=== PATIENT | male | born 1935 | race Caucasian/White ===

== ENCOUNTER 2020-02-04 16:00 | Inpatient (IN) | payer OTHER ==
[~2020-02-04] VITALS: Ht 213.4 cm; Wt 98.4 kg
[2020-02-04 16:00] VITALS: BP 144/76
[2020-02-04] MEDS ORDERED: TOPUD PO (16:30)
[2020-02-04] MEDS ORDERED: TEMA15CA PO (16:31)
[2020-02-04] MEDS ORDERED: HYDR1LIQ5 MT (16:32)
[2020-02-04 17:06] VITALS: BP 144/76
[2020-02-04] MEDS ORDERED: ONDA4SOL MT (17:13)
[2020-02-04] MEDS ORDERED: METO-539 MT (18:46)
[2020-02-04] MEDS ORDERED: ONDANSETRON HCL 4MG/2ML INJ IV PRN (19:15)
[2020-02-04] MEDS: MORPHINE SULFATE 2 MG/ML CPJ (NOT FOR IM USE) IV PRN (19:57)
[2020-02-04 20:00] VITALS: BP 138/76
[2020-02-04 22:00] LABS: HEMOGLOBIN 10.9 g/dL (14.0-18.0); MEAN CORPUSCULAR HEMOGLOBIN 26.6 pg (28.0-32.0); MEAN CORPUSCULAR VOLUME 82.7 fL (80.0-94.0); PLATELET 413 x1000/uL (130-400); RED BLOOD CELL COUNT 4.11 mill/uL (4.7-6.1); RED CELL DISTRIBUTION WIDTH 19.2 % (11.6-14.6)
[2020-02-04 22:05] LABS: CHLORIDE 106 mEq/L (98-107)
[2020-02-04 22:08] LABS: INR 1.5; PROTHROMBIN TIME 15.4 sec (9.6-11.0)
[2020-02-04 22:13] LABS: LDL CHOLESTEROL 50 mg/dL (5-100)
[2020-02-04 22:15] LABS: HDL CHOLESTEROL 27 mg/dL (40-59)
[2020-02-04] MEDS: METOPROLOL TARTRATE 50MG TABLET PO SCH (23:22)
[2020-02-05] VITALS: BP 165/89
[2020-02-05] MEDS: MORPHINE SULFATE 2 MG/ML CPJ (NOT FOR IM USE) IV PRN ×3 (00:53→12:54)
[2020-02-05 04:00] VITALS: BP 200/82
[2020-02-05] MEDS: HYDRALAZINE 20MG/ML VIAL IV PRN (06:37)
[2020-02-05 12:00] VITALS: BP 135/69
[2020-02-05] MEDS ORDERED: LABETALOL 5MG/ML SYR 20 MG/4 ML SYRINGE IV NR (12:30)
[2020-02-05] MEDS: METOPROLOL TARTRATE 50MG TABLET PO SCH ×2 (12:55→22:36)
[2020-02-05] MEDS ORDERED: ACETAMINOPHEN 325MG TABLET PO PRN (13:45)
[2020-02-05 16:00] VITALS: BP 139/72
[2020-02-05 16:39] LABS: BASOPHILS % 1.2 % (0.0-2.0); EOSINOPHILS % 3.8 % (0.0-5.0); HEMATOCRIT. 35.1 % (42.0-52.0); HEMOGLOBIN. 11.3 g/dL (14.0-18.0); LYMPHOCYTES % 17.7 % (20.0-50.0); MEAN CORPUSCULAR HEMOGLOBIN 26.7 pg (28.0-32.0); MEAN CORPUSCULAR VOLUME 83.2 fL (80.0-94.0); MEAN PLATELET VOLUME 8.6 fl (7.4-10.4); NEUTROPHILS % 68.3 % (40.0-76.0); PLATELET 416 x1000/uL (130-400); RED BLOOD CELL COUNT 4.22 mill/uL (4.7-6.1); RED CELL DISTRIBUTION WIDTH 19.4 % (11.6-14.6)
[2020-02-05] MEDS ORDERED: PHENYLEPHRINE 40 MG in DEXT 5% WATER 246 ML IV NR (16:45)
[2020-02-05 16:48] LABS: CHLORIDE 106 mEq/L (98-107)
[2020-02-05] MEDS ORDERED: LIDOCAINE HCL 1% 20ML VIAL (Pyxis) INJ ONE (16:48)
[2020-02-05] MEDS ORDERED: BUPIVACAINE HCL 0.5% (5MG/ML) 50ML ONE (16:48)
[2020-02-05] MEDS ORDERED: LIDOCAINE HCL/PF 1% 10 MG/ML 5ML VIAL ONE (16:52)
[2020-02-05] MEDS ORDERED: CEFAZOLIN SODIUM 1000MG/VIAL ONE (16:52)
[2020-02-05] MEDS ORDERED: FENTANYL CITRATE/PF 50MCG/ML 5ML VIAL ONE (16:54)
[2020-02-05] MEDS ORDERED: PROPOFOL 200MG/20ML VIAL IV ONE (16:55)
[2020-02-05] MEDS ORDERED: ROCURONIUM BROMIDE 10MG/ML VIAL 5ML IV ONE (16:55)
[2020-02-05] MEDS ORDERED: GLYCOPYRROLATE 0.2 MG/ML 2ML VIAL ONE (18:23)
[2020-02-05] MEDS ORDERED: NEOSTIGMINE METHYLSULFATE 1MG/ML 10 ML VIAL ONE (18:23)
[2020-02-05] MEDS ORDERED: HYDROMORPHONE HCL/PF 2MG/ML CPJ IV PRN (19:00)
[2020-02-05] MEDS ORDERED: ONDANSETRON HCL 4MG/2ML INJ IV NR (19:00)
[2020-02-05] MEDS ORDERED: SUCCINYLCHOLINE CHLORIDE 200MG/10ML IV ONE (19:14)
[2020-02-05 20:00] VITALS: BP 127/55
[2020-02-05] MEDS: HYDROCODONE/ACETAMINOPHEN 10/325MG TABLET PO PRN (22:35)
[2020-02-06] VITALS: BP 129/57
[2020-02-06 04:00] VITALS: BP 104/57
[2020-02-06 06:53] LABS: BASOPHILS % 1.1 % (0.0-2.0); EOSINOPHILS % 3.5 % (0.0-5.0); HEMATOCRIT. 33.8 % (42.0-52.0); HEMOGLOBIN. 10.8 g/dL (14.0-18.0); LYMPHOCYTES % 13.3 % (20.0-50.0); MEAN CORPUSCULAR HEMOGLOBIN 26.7 pg (28.0-32.0); MEAN CORPUSCULAR VOLUME 83.6 fL (80.0-94.0); MEAN PLATELET VOLUME 8.4 fl (7.4-10.4); MONOCYTES % 7.6 % (2.0-8.0); NEUTROPHILS % 74.5 % (40.0-76.0); PLATELET 397 x1000/uL (130-400); RED BLOOD CELL COUNT 4.05 mill/uL (4.7-6.1)
[2020-02-06 08:00] VITALS: BP 123/68
[2020-02-06] MEDS: METOPROLOL TARTRATE 50MG TABLET PO SCH ×2 (09:20→21:00)
[2020-02-06] MEDS: MORPHINE SULFATE 2 MG/ML CPJ (NOT FOR IM USE) IV PRN ×3 (10:35→23:08)
[2020-02-06 12:00] VITALS: BP 110/54
[2020-02-06] MEDS: ENOXAPARIN 40MG/0.4ML SYR SUBCUT SCH (12:16)
[2020-02-06 16:00] VITALS: BP 107/51
[2020-02-06 20:00] VITALS: BP 98/43
[2020-02-06] MEDS: HYDROCODONE/ACETAMINOPHEN 10/325MG TABLET PO PRN (20:26)
[2020-02-07] VITALS (8 sets, daily range): BP systolic 85–149; BP diastolic 45–65
[2020-02-07] MEDS: MORPHINE SULFATE 2 MG/ML CPJ (NOT FOR IM USE) IV PRN ×2 (04:45→16:15)
[2020-02-07] MEDS: METOPROLOL TARTRATE 50MG TABLET PO SCH (08:50)
[2020-02-07] MEDS: HYDROCODONE/ACETAMINOPHEN 10/325MG TABLET PO PRN ×2 (11:00→21:23)
[2020-02-07] MEDS ORDERED: SODIUM CHLORIDE 0.9% 500 ML IV ONE (12:30)
[2020-02-07] MEDS: ENOXAPARIN 40MG/0.4ML SYR SUBCUT SCH (12:50)
[2020-02-08] VITALS: BP 110/56
[2020-02-08] MEDS: MORPHINE SULFATE 2 MG/ML CPJ (NOT FOR IM USE) IV PRN ×4 (02:07→21:18)
[2020-02-08 04:00] VITALS: BP 124/64
[2020-02-08 07:54] VITALS: BP 161/62
[2020-02-08] MEDS: HYDROCODONE/ACETAMINOPHEN 10/325MG TABLET PO PRN ×3 (11:15→22:57)
[2020-02-08 11:56] VITALS: BP 120/65
[2020-02-08] MEDS: ENOXAPARIN 40MG/0.4ML SYR SUBCUT SCH (12:37)
[2020-02-08 12:56] LABS: BASOPHILS % 0.9 % (0.0-2.0); EOSINOPHILS % 7.1 % (0.0-5.0); HEMATOCRIT. 29.8 % (42.0-52.0); HEMOGLOBIN. 9.5 g/dL (14.0-18.0); LYMPHOCYTES % 16.7 % (20.0-50.0); MEAN CORPUSCULAR HEMOGLOBIN 26.6 pg (28.0-32.0); MEAN CORPUSCULAR VOLUME 83.6 fL (80.0-94.0); MEAN PLATELET VOLUME 8.5 fl (7.4-10.4); MONOCYTES % 10.1 % (2.0-8.0); NEUTROPHILS % 65.2 % (40.0-76.0); PLATELET 363 x1000/uL (130-400); RED BLOOD CELL COUNT 3.56 mill/uL (4.7-6.1); RED CELL DISTRIBUTION WIDTH 19.1 % (11.6-14.6)
[2020-02-08 13:10] LABS: CHLORIDE 107 mEq/L (98-107)
[2020-02-08] MEDS: DOCUSATE SODIUM 250MG CAPSULE PO SCH (15:36)
[2020-02-08 16:21] VITALS: BP 112/52
[2020-02-08 20:00] VITALS: BP 131/48
[2020-02-09] VITALS: BP 132/58
[2020-02-09] MEDS: MORPHINE SULFATE 2 MG/ML CPJ (NOT FOR IM USE) IV PRN ×5 (01:17→21:14)
[2020-02-09 04:00] VITALS: BP 149/68
[2020-02-09] MEDS: HYDRALAZINE 20MG/ML VIAL IV PRN (06:10)
[2020-02-09 08:00] VITALS: BP_SYST 122; BP_SYST 130; BP_DIAS 77; BP_DIAS 79
[2020-02-09] MEDS: DOCUSATE SODIUM 250MG CAPSULE PO SCH (08:27)
[2020-02-09 12:00] VITALS: BP_SYST 147; BP_SYST 167; BP_DIAS 100; BP_DIAS 67
[2020-02-09] MEDS: ENOXAPARIN 40MG/0.4ML SYR SUBCUT SCH (12:48)
[2020-02-09] MEDS ORDERED: LACTULOSE 20G/30ML UDC PO NR (14:00)
[2020-02-09 16:00] VITALS: BP 158/74
[2020-02-09] MEDS: OXYCODONE HCL/ACETAMINOPHEN 5/325MG TABLET PO PRN (16:47)
[2020-02-09 20:00] VITALS: BP 115/51
[2020-02-09] MEDS ORDERED: ZOLPIDEM TARTRATE 5MG TABLET PO PRN (23:15)
[2020-02-09] MEDS ORDERED: MAGNESIUM/ALUMINUM HYDROXIDE/SIMETHICONE 30ML UDC PO PRN (23:15)
[2020-02-10] VITALS (7 sets, daily range): BP systolic 101–146; BP diastolic 56–88
[2020-02-10] MEDS: OMEPRAZOLE 20MG CAPSULE EXTENDED RELEASE PO SCH (06:55)
[2020-02-10] MEDS: DOCUSATE SODIUM 250MG CAPSULE PO SCH (08:18)
[2020-02-10] MEDS: MORPHINE SULFATE 2 MG/ML CPJ (NOT FOR IM USE) IV PRN ×3 (08:19→20:22)
[2020-02-10] MEDS: OXYCODONE HCL/ACETAMINOPHEN 5/325MG TABLET PO PRN ×3 (10:41→21:39)
[2020-02-10] MEDS: ENOXAPARIN 40MG/0.4ML SYR SUBCUT SCH (13:17)
[2020-02-11] VITALS: BP 112/54
[2020-02-11] MEDS ORDERED: HYDRALAZINE 10 MG in DEXTROSE 5% WATER 50 ML IV PRN ×2
[2020-02-11] MEDS: MORPHINE SULFATE 2 MG/ML CPJ (NOT FOR IM USE) IV PRN ×3 (00:36→05:42)
[2020-02-11 04:00] VITALS: BP 128/59
[2020-02-11] MEDS: OMEPRAZOLE 20MG CAPSULE EXTENDED RELEASE PO SCH (07:04)
[2020-02-11 08:00] VITALS: BP 132/69
[2020-02-11] MEDS: DOCUSATE SODIUM 250MG CAPSULE PO SCH (09:51)
[2020-02-11] MEDS: OXYCODONE HCL/ACETAMINOPHEN 5/325MG TABLET PO PRN ×3 (10:30→21:45)
[2020-02-11 12:00] VITALS: BP 125/67
[2020-02-11] MEDS: ENOXAPARIN 40MG/0.4ML SYR SUBCUT SCH (12:58)
[2020-02-11 16:00] VITALS: BP 101/57
[2020-02-11 20:00] VITALS: BP 131/53
[2020-02-12] VITALS: BP 107/54
[2020-02-12] MEDS: MORPHINE SULFATE 2 MG/ML CPJ (NOT FOR IM USE) IV PRN ×2 (01:27→05:43)
[2020-02-12 04:00] VITALS: BP 136/61
[2020-02-12 08:00] VITALS: BP 142/64
[2020-02-12] MEDS: DOCUSATE SODIUM 250MG CAPSULE PO SCH (08:24)
[2020-02-12] MEDS: OXYCODONE HCL/ACETAMINOPHEN 5/325MG TABLET PO PRN (08:52)
[2020-02-12] MEDS ORDERED: FAMOTIDINE 20MG TABLET PO SCH (09:00)
[2020-02-12] MEDS ORDERED: LOSARTAN POTASSIUM 25 MG TABLET PO SCH (11:30)
[2020-02-12 12:00] VITALS: BP 156/57
[2020-02-12] MEDS: ENOXAPARIN 40MG/0.4ML SYR SUBCUT SCH (12:40)
[2020-02-12 16:05] VITALS: BP 156/57
== END 2020-02-12 16:27 | DRG 559 ==
LOC: 5WST 16:00 → 6EST 02-10 23:00
PROVIDERS: ADMIT Internal Medicine; ATTEND Internal Medicine
PROC: 0SWBXJZ Revision of Synthetic Substitute in Left Hip Joint, External Approach (ICD-10-PCS; principal; 2020-02-05)
DX: T84.021A Dislocation of internal left hip prosthesis, initial encounter (principal); E43 Unspecified severe protein-calorie malnutrition; M24.452 Recurrent dislocation, left hip; D64.9 Anemia, unspecified; I25.2 Old myocardial infarction; I27.20 Pulmonary hypertension, unspecified; Y79.2 Prosthetic and other implants, materials and accessory orthopedic devices associated with adverse incidents; Z96.643 Presence of artificial hip joint, bilateral; I10 Essential (primary) hypertension; I35.0 Nonrheumatic aortic (valve) stenosis; I73.9 Peripheral vascular disease, unspecified; Z89.611 Acquired absence of right leg above knee; Y92.89 Other specified places as the place of occurrence of the external cause
CPT/HCPCS: 36415; 71045; 73502; 73503; 76000; 80048; 80053; 80061; 83735; 83880; 85025; 85027; 86850; 86900; 87635; 93005; 93306; 97110; 97162; 97166; 97530; J0330; J0360; J0690; J1170; J1650; J2270; J2370; J2405; J2704; J2710; J3010; J3490; J7060